=== PATIENT | female | born 1960 | race Caucasian/White ===

== ENCOUNTER → 2016-06-21 | Day surgery (SDC) | payer OTHER ==
[2015-12-08 05:20] VITALS: BMI 21.7
[~2016-06-21] MED LIST: ALBUTEROL 6.7 GM MDI INH ONE; CEFAZOLIN 1 GM VIAL ONE; DEXAMETHASONE 4 MG/ML VIAL IV ONE; FENTANYL 100 MCG/2 ML VIAL IV ONE; FENTANYL 100 MCG/2 ML VIAL IV PRN; Gentamicin 80 mg/50 ml NaCl 80 MG/50 ML RTU ONE; HYDROmorphone 1 MG INJECTION IV PRN; HYDROmorphone 1 MG INJECTION ONE; ISOVUE-300 (61%) 50 ML ONE; LABETALOL 20 MG/4 ML SYRINGE IV PRN; LIDOCAINE 100 MG PFS IV ONE; MEPERIDINE 25 MG/ML TUBEX IV PRN; METOCLOPRAMIDE 10 MG/2 ML VIAL IV ONE; MIDAZOLAM 2 MG/2 ML VIAL IV ONE; ONDANSETRON HCL 4 MG ODT TAB PO PRN; ONDANSETRON HCL 4 MG/2 ML VIAL IV ONE; ONDANSETRON HCL 4 MG/2 ML VIAL IV PRN; PROPOFOL 200 MG/20 ML VIAL IV ONE; SCOPOLAMINE TRANSDERMAL PATCH TOP ONE; hydrALAZINE 20 MG/ML VIAL IV PRN
--- NOTE | 2016-06-21 12:37 | HIM.ANES ---
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 (06/21/16) OTHER SPECIFIED DISORDERS OF BLADDER (06/21/16) UNSPECIFIED ABDOMINAL PAIN (06/21/16) Consented Procedure: CYSTOSCOPY, RIGHT RETROGRADE PYELOGRAM, POSSIBLE URETEROSCOPY,REPLACEMENT OF A DJ STENT, POSSIBLE LASER OF STONE - Focused Review of Systems Cardiac History: Yes: Hx Cardiac Disorders, Hx Abnormal Cholesterol/ Hyperlipidemia No: Hx Hypertension, Hx Angina HEENT: Yes: Hx Vision Problem (GLASSES), Other HEENT Problems No: Loose/Decaying Teeth, Removable Dental Work Respiratory: Yes: Hx Asthma, Hx Snoring, Hx Pneumonia (10/2015) Gastrointestinal: Yes: Hx Gastroesophageal Reflux Disease, Hx Gastrointestinal Disorders, Hx Colonoscopy, Hx Endoscopy Neurological/Musculoskeletal: Yes: Hx Seizures (11/01/2015 SEIZURE PRIOR TO CPR) , Hx Migraine, Hx Back Pain (LUMBAR SPINE STENOSIS), Hx Numbness, Tingling, Weakness in Arms & Legs (BILATERAL FOOT NUMBNESS), Hx Neurological Disorders Other Neurological Problems: PERIPHERAL NEUROPATHY UNKNOWN CAUSE Psychological: Yes Hx Anxiety, Yes Hx Depression, Yes Hx Mental/Emotional Disorders HX Other Psyco/Soc Problems: depression Endocrine: Yes: Hx Hypothyroidism Blood/Autoimmune: Yes: Hx Blood Transfusions (10/2015), Hx Anemia No: Hx AIDS, Hx Hepatitis (type) Smoking Status: Never smoker Past Social History: Denies: Substance Use Disorder Hx Echocardiogram (date): Yes (11/01/2015 LVEF 65-70% NORMAL) Hx Chest Xray (date): Yes (MULTIPLE CXR AND CT SCANS 10/2015 SEE REPORTS) Surgical History: Yes: Ureter Stent (10/2015, 12/2015), Back (CERVICAL SPINE FUSION 1994), Other (NECK fusion, kidney stones x 7) Other Surgical History: MULTIPLE CYSYOSCOPIES WITH STENT EXCHANGE NECK SURGERY 1984 - Focused Physical Exam NPO since: 06/20/16 2330 Mallampati: Class II Thyromental Distance: Greater than 3 Neck: Full Range of Motion Dental: Normal - no significant findings Cardiovascular/Chest: Normal Respiratory: Lungs clear Any problems with anesthesia, including nausea and vomiting?: Yes (NAUSEA, ANXIOUS) Any relatives with a history of Malignant Hyperthermia?: No Does patient have a history of Malignant Hyperthermia?: No Beta Laya given (if appropriate): N/A Does the patient have a history of Motion Sickness-: No Other: Problem List Problem Status Onset Altered mental status Active Acute cystitis with hematuria Acute Acute delirium Acute Acute pulmonary edema Acute Acute respiratory failure with hypoxia Acute Ambulatory dysfunction Acute Anemia due to infection Acute Bandemia Acute Candidiasis Acute Cardiopulmonary arrest Acute Contusion of left thigh Acute E. coli septicemia Acute GI bleed Acute Hydronephrosis, right Acute Hypokalemia Acute Hypomagnesemia Acute Hypotension Acute Metabolic encephalopathy Acute Physical deconditioning Acute Pleural effusion Acute Severe sepsis Acute Thrombocytopenia Acute Tinea pedis Acute UTI (urinary tract infection) Acute Urinary tract infectious disease Acute Anemia due to unknown mechanism Chronic Flank pain Chronic GERD (gastroesophageal reflux disease) Chronic Hypothyroidism Chronic Seizure Chronic Ureteral calculus Chronic Aspiration pneumonia Suspected Allergies Allergy/AdvReac Type Severity Reaction Status Date / Time Sulfa (Sulfonamide Allergy Severe Rash-Genera Verified 06/19/16 13:20 Antibiotics) lized enoxaparin sodium AdvReac Intermediate See Verified 06/19/16 13:20 [From Lovenox] Comments Home Medications Medication Instructions Recorded Last Taken Type Albuterol Sulfate [Proair Hfa] 1 - 2 puff INH Q4H PRN 01/05/13 06/21/16 08:00 History Gentamicin [Garamycin] 1 gm TOP DIR 11/03/15 06/20/16 10:00 History Ketoconazole [Nizoral] 1 gm TOP DIR 11/03/15 06/20/16 08:00 History Atorvastatin Calcium [Lipitor] 10 mg PO DAILY #30 tablet 12/09/15 06/20/16 08: 00 Rx Escitalopram Oxalate [Lexapro] 20 mg PO DAILY #30 tablet 12/09/15 06/20/16 08: 00 Rx Fluticasone/Salmeterol [Advair 1 inh INH QAM #1 inhaler 12/09/15 06/20/16 08:00 Rx 500-50] Hydrocodone Bit/Acetaminophen 1 tab PO Q4H PRN #60 tablet 12/09/15 06/21/16 07: 00 Rx [Berkley 10-325 Tablet] Levothyroxine [Synthroid, Levoxyl] 25 mcg PO DAILY #30 tablet 12/09/15 06/20/16 08:00 Rx Montelukast Sodium [Singulair] 10 mg PO DAILY #30 12/09/15 06/20/16 08:00 Rx Pantoprazole Sodium [Protonix] 40 mg PO BID #60 tablet. 12/09/15 06/20/16 18: 00 Rx CYANOCOBALAMIN (Vitamin B-12) 1 dose IM QMONTH 02/28/16 06/03/16 History [Vitamin B-12 (cyanocobalamin)] Ergocalciferol (Vitamin D2) 1 tab PO WEEKLY 02/28/16 06/20/16 08:00 History [Vitamin D] Rizatriptan Benzoate [Maxalt] 5 mg PO DIR PRN 02/28/16 06/20/16 08:00 History Amitriptyline HCl 100 mg PO HS 04/07/16 06/20/16 22:00 History Tamsulosin HCl [Flomax] 0.4 mg PO DAILY 04/07/16 06/20/16 08:00 History Fluconazole [Diflucan] 100 mg PO DAILY 04/19/16 06/20/16 08:00 History Albuterol Sulfate Nebs [Proventil, 3 ml NEB Q4-6H PRN 06/19/16 Unknown History Ventolin] Height and Weight Patient's height 5 ft 3 in Patient's weight 57.606 kg BMI 21.7 Vital Signs Temperature 97.1 F L 06/21/16 12:03 Pulse Rate 97 06/21/16 12:03 Respiratory Rate 18 06/21/16 12:03 Blood Pressure 135/91 06/21/16 12:03 Pulse Oxygen Saturation 100 06/21/16 12:03 METS - Level of Activity: Eating, Dressing, walking around house, dishwashing - Anesthetic Plan Anesthesia Type: General ASA Class: 3 -: I have examined this patient and reviewed the medical record. The patient has been assessed prior to anesthesia. Risks and benefits of anesthesia and anesthetic technique options have been discussed and all questions answered. The patient accepts the risk and desires me to proceed with the planned anesthetic.
--- NOTE | 2016-06-21 13:49 | HIMOPRPT ---
PROCEDURE: DATE OF PROCEDURE: 06/21/16 PREOPERATIVE DIAGNOSIS: Right hydronephrosis and ureteral stricture. POSTOPERATIVE DIAGNOSIS: Right hydronephrosis and ureteral stricture. PROCEDURE PERFORMED: Cystoscopy, right retrograde pyelogram, and stent exchange. SURGEON: Anshul Pope MD ANESTHESIA USED: General. INDICATION FOR PROCEDURE: The patient is an 56 WHITE F with a history of right ureteral stricture and hydronephrosis. She is brought in now for stent exchange . PROCEDURE IN DETAIL: The patient was brought into the operating room, placed on the table in the supine position. After adequate general anesthesia was achieved , the patient was carefully placed in dorsal lithotomy and the perineum prepped and draped in sterile fashion for the performance of cystoscopy. Initially, the 23-German scope was passed with the obturator, obturator was removed, working element placed. Inspection revealed the bladder to be intact and no lesions noted. Previously placed stent was visualized. A Nitinol wire was then able to be worked next to the stent up the ureter and it was seen to curl fluoroscopically in the kidney. The wire then remained in place. Then, graspers were placed and the previously placed stent was removed intact and easily. The wire was then back loaded onto the cystoscope, open-ended catheter then placed over the wire up into the kidney. The wire was removed and urine was collected for culture and sensitivity from the renal pelvis. Using 4- 6 cc of contrast, retrograde pyelogram was obtained, which showed the calices to be mildly hydronephrotic as well as the pelvis. Previously, the patient has had a 6-German 20 cm stent, so I removed the open-ended catheter, wire remained in place. Over the wire, then the 6- German 20 cm stent was placed, it was seen to curl fluoroscopically in the kidney and then visually in the bladder. At this point, then the procedure was terminated. The bladder was filled. Cystoscope removed. A 16-German Leggett placed to drain the bladder. The patient tolerated all this well. The patient was then awakened and taken to the recovery room in good condition.
[2016-06-21 14:54] VITALS: TEMP 98.2
[2016-06-21 17:20] VITALS: BP 133/66; PULSE 94
== END ==
LOC: SDC 11:19
PROVIDERS: ATTEND Urology
PROC: 0T768DZ Dilation of Right Ureter with Intraluminal Device, Via Natural or Artificial Opening Endoscopic (ICD-10-PCS; principal; 2016-06-21 13:20)
DX: N13.1 Hydronephrosis with ureteral stricture, not elsewhere classified (principal); N32.89 Other specified disorders of bladder; E03.9 Hypothyroidism, unspecified; E78.5 Hyperlipidemia, unspecified; E78.00 Pure hypercholesterolemia, unspecified; J45.909 Unspecified asthma, uncomplicated; K21.9 Gastro-esophageal reflux disease without esophagitis; F41.9 Anxiety disorder, unspecified; F32.9 Major depressive disorder, single episode, unspecified; G62.9 Polyneuropathy, unspecified; M19.90 Unspecified osteoarthritis, unspecified site; G43.909 Migraine, unspecified, not intractable, without status migrainosus; Z79.899 Other long term (current) drug therapy
CPT/HCPCS: 52332; 87077; 87086; 87102; A9270; J0690; J1170; J1580; J1100; J2001; J2250; J2405; J2765; J3010; J3490